=== PATIENT | male | born 1995 ===

== ENCOUNTER 2020-09-26 22:03 | Emergency (ER) | payer SELFPAY ==
[2020-09-26 22:05] VITALS: TEMP 96.1
[2020-09-26 22:32] LABS: BASO # 0.1 (0.0-0.2); BASO % 0.6 % (0.0-2.0); EOS % 8.5 % (0-4.0); GRAN # 5.4 (1.4-6.5); GRAN % 45.5 % (42.2-75.2); HEMATOCRIT 37.9 % (42.0-52.0); HEMOGLOBIN 13.2 g/dl (13.5-18.0); LYMPH # 4.7 (1.2-3.4); LYMPH % 39.1 % (20.0-51.0); MEAN CELL VOLUME 84 fl (80.0-100.0); MEAN CORPUSCULAR HEMOGLOBIN 29 pg (27.0-31.0); MEAN CORPUSCULAR HGB CONC 35 g/dl (33.0-37.0); MONO # 0.7 (0.1-0.6); PLATELET COUNT 189 K/mm3 (130-400); RED BLOOD COUNT 4.51 M/mm3 (4.20-5.60); REDCELL DISTRIBUTION WIDTH-CV 12.8 % (11.5-14.5)
[2020-09-26 22:42] LABS: ALCOHOL(ethanol),MEDICAL 195 mg/dL
[2020-09-26 22:51] LABS: BLOOD UREA NITROGEN 12 mg/dL (9-20); CARBON DIOXIDE 25 mmol/L (22-30); CHLORIDE 107 mmol/L (98-107); CREATININE, serum 0.8 (0.66-1.25); GLUCOSE 95 mg/dL (74-106); POTASSIUM 3.6 mmol/L (3.4-5.0); SODIUM 142 mmol/L (137-145)
[2020-09-26 22:52] LABS: ALBUMIN 3.8 gm/dL (3.5-5.0); ALKALINE PHOSPHATASE 42 U/L (50-136); AST,SGOT 27 U/L (15-37); BILIRUBIN,TOTAL 0.5 mg/dL (0.0-1.0); CALCIUM 7.7 mg/dL (8.4-10.2); SALICYLATE < 1.0 mg/dL; TOTAL PROTEIN 6.5 gm/dL (6.4-8.2)
[2020-09-26 22:53] LABS: ACETAMINOPHEN < 10 ug/mL (10-30); ALANINE AMINOTRANSFERASE 15 U/L (4-49)
[2020-09-26 22:55] LABS: ANION GAP 10 mmol/L (7-16)
[2020-09-26 22:58] LABS: PROLACTIN 58.2 ng/mL (3.7-17.9)
[2020-09-26 23:22] LABS: LACTIC ACID 1.9 mmol/L (0.4-2.0)
[2020-09-27] MEDS ORDERED: PRILOSEC 20MG20 MG PO (02:23)
[2020-09-27 04:40] VITALS: BP 100/71; PULSE 61
== END 2020-09-27 04:50 | disposition home or self-care (01) ==
LOC: COL.ER 22:03 → EDBD 22:06 → COL.ER 22:06
PROVIDERS: Emergency Medicine
DX: R41.82 Altered mental status, unspecified (principal); F10.129 Alcohol abuse with intoxication, unspecified
CPT/HCPCS: J2405; J7030